=== PATIENT | male | born 1945 | race Caucasian/White ===

== ENCOUNTER 2024-12-01 16:58 | Inpatient (IN) | payer MEDICARE ==
[~2024-12-01] VITALS: Ht 177.8 cm; Wt 125.4 kg
[2024-12-01] MEDS ORDERED: CILOSTAZOL50 MG PO (17:37)
[2024-12-01] MEDS ORDERED: INSULIN GL300 UNIT/2 SQ (17:37)
[2024-12-01] MEDS ORDERED: OZEMPIC1 MG/0.71 (17:37)
[2024-12-01] MEDS ORDERED: CLOPIDOGREL75 MG PO (17:37)
[2024-12-01] MEDS ORDERED: TERAZOSIN HCL5 MG PO (17:37)
[2024-12-01] MEDS ORDERED: AMLODIPINE BESY10 MG PO (17:37)
[2024-12-01] MEDS ORDERED: FUROSEMIDE40 MG PO (17:37)
[2024-12-01] MEDS ORDERED: NOVOLOG100 UNIT/1 SC (17:37)
[2024-12-01] MEDS ORDERED: METOPROLOL TAR100 MG PO (17:37)
[2024-12-01] MEDS ORDERED: BRIMONIDINE TART5 ML OP (17:37)
[2024-12-01] MEDS ORDERED: RAMIPRIL5 MG PO (17:37)
[2024-12-01] MEDS ORDERED: JARDIANCE25 MG (17:37)
[2024-12-01] MEDS ORDERED: ATORVASTATIN CA20 MG PO (17:37)
[2024-12-01] MEDS: ASPIRIN 81 MG CHEW TAB PO ONE ×2 (18:39→19:09)
[2024-12-01] MEDS ORDERED: HEPARIN SOD/DEXTROSE 5% 25000 UNIT/250 ML BAG IV SCH (18:45)
[2024-12-01] MEDS: HEPARIN SOD (PORCINE) 5,000 UNIT/ML VIAL IV ONE (19:30)
[2024-12-01] MEDS: HEPARIN 25,000 UNIT/D5W 250ML 250 ML IV SCH (19:32)
[2024-12-01 20:48] VITALS: PULSE 71; RESP 18; TEMP 98.6
[2024-12-01 21:38] VITALS: PULSE 75; RESP 18; O2SAT 98
[2024-12-01 22:00] VITALS: BP 169/74; PULSE 75; RESP 18; TEMP 98.6; O2SAT 98
[2024-12-01 22:30] VITALS: BP_SYST 162; BP_SYST 169; BP_DIAS 74; BP_DIAS 82; PULSE 72; PULSE 75; RESP 18; TEMP 98.6; O2SAT 98
[2024-12-02] VITALS (19 sets, daily range): BP systolic 153–180; BP diastolic 61–71; PULSE 61–78; RESP 11–20; TEMP 96.8–98.2; O2SAT 93–100
[2024-12-02] MEDS: HYDRALAZINE HCL 20 MG/ML VIAL IV STA (02:36)
[2024-12-02] MEDS: HEPARIN 25,000 UNIT/D5W 250ML 250 ML IV SCH ×2 (02:39→22:33)
[2024-12-02 05:10] LABS: BASOPHILS # (AUTO) 0.1 (0.0-0.1); BASOPHILS % 0.6 % (0.0-1.0); EOSINOPHILS # (AUTO) 0.1 (0.0-0.4); EOSINOPHILS % 1.3 % (0.0-6.0); HEMATOCRIT 36.9 % (38.2-49.6); LYMPHOCYTES # (AUTO) 2.8 (1.0-3.2); LYMPHOCYTES % 31.2 % (18.0-39.1); MEAN CORPUSCULAR HEMOGLOBIN 30.4 pg (28-32); MEAN CORPUSCULAR HGB CONC 32.5 g/dL (31-35); MEAN CORPUSCULAR VOLUME 93.4 fL (81-99); MONOCYTES # (AUTO) 0.6 (0.2-0.8); MONOCYTES % 6.7 % (4.4-11.3); NEUTROPHILS # (AUTO) 5.3 (2.1-6.9); NEUTROPHILS % 59.9 % (38.7-80.0); PLATELET COUNT 221 x10e3/uL (140-360); RED BLOOD COUNT 3.95 x10e6/uL (4.3-5.7); RED CELL DISTRIBUTION WIDTH 13.8 % (11.7-14.4); WHITE BLOOD COUNT 8.93 x10e3/uL (4.8-10.8)
[2024-12-02 05:33] LABS: INR 0.9; PROTHROMBIN TIME 12.7 seconds (11.9-14.5)
[2024-12-02 05:34] LABS: PARTIAL THROMBOPLASTIN TIME 37.7 seconds (23.8-35.5)
[2024-12-02 05:42] LABS: ANION GAP 13.1 mmol/L (8-16); CALCIUM 8.2 mg/dL (8.4-10.2); CHOL/HDL RATIO 4.8 (3.9-4.7); CREATININE, SERUM 1.51 mg/dL (0.72-1.25); MAGNESIUM 2.3 MG/DL (1.3-2.1); PHOSPHORUS 3.6 MG/DL (2.3-4.7); POTASSIUM 4.1 mmol/L (3.5-5.1)
[2024-12-02 06:29] LABS: TROPONIN I 3.793 ng/mL (0-0.300)
[2024-12-02] MEDS: ASPIRIN 325 MG TAB EC PO SCH (10:01)
[2024-12-02] MEDS ORDERED: VERAPAMIL HCL 2.5 MG/ML 2 ML VIAL ONE (11:09)
[2024-12-02] MEDS ORDERED: LIDOCAINE HCL 2% LOCAL 20 ML VIAL ONE (11:09)
[2024-12-02] MEDS ORDERED: HEPARIN SOD (PORCINE) 1000 UNIT/ML 30ML ONE (11:09)
[2024-12-02] MEDS ORDERED: SODIUM CHLORIDE 0.9% 1000ML 1,000 ML ONE (11:10)
[2024-12-02] MEDS ORDERED: IOPAMIDOL 370 MG/ML 100 ML INFUS..BTL INJ ONE (11:10)
[2024-12-02] MEDS ORDERED: HEPARIN SOD/SOD CHLORIDE 2,000 ML ONE (11:10)
[2024-12-02] MEDS ORDERED: NITROGLYCERIN/D5W 200 MCG/ML 250 ML ONE (11:10)
[2024-12-02] MEDS ORDERED: HYDRALAZINE HCL 20 MG/ML VIAL IV PRN (11:30)
[2024-12-02] MEDS: ATORVASTATIN 40 MG TAB PO SCH (12:00)
[2024-12-02] MEDS: AMLODIPINE BESYLATE 10 MG TAB PO SCH (12:00)
[2024-12-02] MEDS ORDERED: MIDAZOLAM HCL 2 MG/2 ML VIAL ONE (12:14)
[2024-12-02] MEDS ORDERED: FENTANYL CITRATE/PF 100MCG/2 ML INJ ONE (12:14)
[2024-12-02] MEDS: RAMIPRIL 5 MG CAP PO SCH (12:30)
[2024-12-02] MEDS ORDERED: SODIUM CHLORIDE 0.9% 1000ML 1,000 ML IV SCH (13:30)
[2024-12-02] MEDS: BRIMONIDINE TARTRATE (OPTH) 5 ML LIQD OP SCH (16:14)
[2024-12-02] MEDS: TERAZOSIN HCL 5 MG CAP PO SCH (16:17)
[2024-12-02] MEDS: METOPROLOL TARTRATE 50 MG TAB PO SCH (16:18)
[2024-12-02] MEDS ORDERED: CILOSTAZOL 100 MG TAB PO SCH (17:00)
[2024-12-02 21:00] LABS: TROPONIN I 1.674 ng/mL (0-0.300)
[2024-12-02] MEDS ORDERED: INSULIN GLARGINE 100 UNITS/ML VIAL SQ SCH (21:00)
[2024-12-02] MEDS ORDERED: FAMOTIDINE 20 MG TAB PO SCH (21:30)
[2024-12-03] MEDS ORDERED: CLOPIDOGREL BISULFATE 75 MG TAB PO SCH (09:00)
[2024-12-03] MEDS ORDERED: FUROSEMIDE 40 MG TAB PO SCH (09:00)
== END 2024-12-02 23:12 | disposition short-term general hospital (02) | DRG 282 ==
LOC: FSED 17:03 → ERHOLD 18:56 → MED/SURG 21:12
PROVIDERS: ADMIT Internal Medicine; ATTEND Internal Medicine
PROC: 4A023N7 Measurement of Cardiac Sampling and Pressure, Left Heart, Percutaneous Approach (ICD-10-PCS; principal; 2024-12-02)
PROC: B2111ZZ Fluoroscopy of Multiple Coronary Arteries using Low Osmolar Contrast (ICD-10-PCS; 2024-12-02)
DX: I21.4 Non-ST elevation (NSTEMI) myocardial infarction (principal); E11.22 Type 2 diabetes mellitus with diabetic chronic kidney disease; I12.9 Hypertensive chronic kidney disease with stage 1 through stage 4 chronic kidney disease, or unspecified chronic kidney disease; I25.10 Atherosclerotic heart disease of native coronary artery without angina pectoris; E78.5 Hyperlipidemia, unspecified; E11.51 Type 2 diabetes mellitus with diabetic peripheral angiopathy without gangrene; N18.30 Chronic kidney disease, stage 3 unspecified; J44.9 Chronic obstructive pulmonary disease, unspecified; E66.01 Morbid (severe) obesity due to excess calories; Z68.39 Body mass index [BMI] 39.0-39.9, adult; N40.0 Benign prostatic hyperplasia without lower urinary tract symptoms; R60.0 Localized edema; Z79.4 Long term (current) use of insulin; Z79.02 Long term (current) use of antithrombotics/antiplatelets; Z79.85 Long-term (current) use of injectable non-insulin antidiabetic drugs; Z79.84 Long term (current) use of oral hypoglycemic drugs; Z88.8 Allergy status to other drugs, medicaments and biological substances; Z82.49 Family history of ischemic heart disease and other diseases of the circulatory system
CPT/HCPCS: 36415; 71046; 76937; 80048; 80061; 80076; 81003; 82550; 82553; 82948; 83735; 83880; 84100; 84484; 85025; 85610; 85730; 87400; 93005; 93306; 93458; 94799; 96361; 96366; 99152; 99153; 99284; C1769; C1887; J0360; J1644; J2003; J2250; J7030; Q9967

== ENCOUNTER 2025-01-04 08:52 | Emergency (ER) | payer MEDICARE ==
[~2025-01-04] VITALS: Ht 177.8 cm; Wt 120.2 kg
[~2025-01-04 08:52] MED LIST: AMLODIPINE BESY10 MG PO; ATORVASTATIN CA20 MG PO; BRIMONIDINE TART5 ML OP; CILOSTAZOL50 MG PO; CLOPIDOGREL75 MG PO; FUROSEMIDE40 MG PO; INSULIN GL300 UNIT/2 SQ; JARDIANCE25 MG; METOPROLOL TAR100 MG PO; NOVOLOG100 UNIT/1 SC; OZEMPIC1 MG/0.71; RAMIPRIL5 MG PO; TERAZOSIN HCL5 MG PO
[2025-01-04 09:30] VITALS: TEMP 98.1
[2025-01-04 10:36] LABS: BASOPHILS % 0.5 % (0.0-1.0); EOSINOPHILS # (AUTO) 0.1 (0.0-0.4); EOSINOPHILS % 2.3 % (0.0-6.0); HEMATOCRIT 31.8 % (38.2-49.6); HEMOGLOBIN 10.1 g/dL (14.0-18.0); LYMPHOCYTES # (AUTO) 1.8 (1.0-3.2); LYMPHOCYTES % 30.8 % (18.0-39.1); MEAN CORPUSCULAR HEMOGLOBIN 30.2 pg (28-32); MEAN CORPUSCULAR HGB CONC 31.8 g/dL (31-35); MEAN CORPUSCULAR VOLUME 95.2 fL (81-99); MONOCYTES # (AUTO) 0.6 (0.2-0.8); MONOCYTES % 9.5 % (4.4-11.3); NEUTROPHILS # (AUTO) 3.4 (2.1-6.9); NEUTROPHILS % 56.6 % (38.7-80.0); PLATELET COUNT 199 x10e3/uL (140-360); RED BLOOD COUNT 3.34 x10e6/uL (4.3-5.7); RED CELL DISTRIBUTION WIDTH 14.4 % (11.7-14.4); WHITE BLOOD COUNT 5.98 x10e3/uL (4.8-10.8)
[2025-01-04 10:46] VITALS: PULSE 77; RESP 16; O2SAT 99
[2025-01-04 10:54] LABS: INR 0.93; PARTIAL THROMBOPLASTIN TIME 25.8 seconds (23.8-35.5)
[2025-01-04 10:59] LABS: ALBUMIN 2.7 g/dL (3.5-5.0); ALBUMIN/GLOBULIN RATIO 0.9 (0.8-2.0); ANION GAP 12.5 mmol/L (8-16); BILIRUBIN,TOTAL 0.5 mg/dL (0.2-1.2); CALCIUM 8.5 mg/dL (8.4-10.2); CREATININE, SERUM 1.45 mg/dL (0.72-1.25); MAGNESIUM 1.9 MG/DL (1.3-2.1); POTASSIUM 4.5 mmol/L (3.5-5.1); TOTAL PROTEIN 5.8 g/dL (6.5-8.1)
[2025-01-04 11:05] LABS: TROPONIN I 0.021 ng/mL (0-0.300)
[2025-01-04] MEDS: ONDANSETRON HCL INJ 2MG/ML 2ML 2 MG/ML VIAL IV STA (11:10)
[2025-01-04] MEDS: SODIUM CHLORIDE 0.9% 500ML 500 ML IV ONE (11:11)
[2025-01-04] MEDS: MECLIZINE HCL 12.5 MG TAB PO ONE (11:25)
[2025-01-04] MEDS ORDERED: MECLIZINE HCL12.5 MG PO (11:38)
== END 2025-01-04 12:15 | disposition home or self-care (01) ==
LOC: ER 10:01
DX: R42 Dizziness and giddiness (principal); I10 Essential (primary) hypertension; E11.65 Type 2 diabetes mellitus with hyperglycemia; J44.9 Chronic obstructive pulmonary disease, unspecified; I25.10 Atherosclerotic heart disease of native coronary artery without angina pectoris; E78.5 Hyperlipidemia, unspecified; I73.9 Peripheral vascular disease, unspecified; G47.30 Sleep apnea, unspecified
CPT/HCPCS: 36415; 70450; 71045; 80053; 83735; 83880; 84484; 85025; 85610; 85730; 93005; 99284; J2405; J2470; J7040; J8597